=== PATIENT | female | born 1950 | race Caucasian/White ===

== ENCOUNTER 2021-08-23 07:36 | Emergency (ER) | payer OTHER ==
[~2021-08-23] VITALS: Ht 157.5 cm; Wt 61.2 kg
[2021-08-23] MEDS ORDERED: KETOROLAC TROMETHAMINE 30 MG/ML VIAL IV STA (07:58)
[2021-08-23] MEDS ORDERED: METOCLOPRAMIDE HCL 10 MG/2ML VIAL IV ONE (08:00)
[2021-08-23] MEDS ORDERED: DIPHENHYDRAMINE HCL INJ 50 MG/ML VIAL IV ONE (08:00)
[2021-08-23] MEDS ORDERED: SODIUM CHLORIDE 0.9% 500ML 500 ML IV ONE (08:00)
[2021-08-23] MEDS ORDERED: CEFTRIAXONE 1 GM in SODIUM CHLORIDE 0.9% 50ML 50 ML IV ONE (08:15)
[2021-08-23 09:20] VITALS: BP 158/75
== END 2021-08-23 09:24 | disposition home or self-care (01) ==
LOC: ER 08:00
DX: J01.30 Acute sphenoidal sinusitis, unspecified (principal); R51.9 Headache, unspecified; I10 Essential (primary) hypertension
CPT/HCPCS: 99283; J0696; J1200; J1885; J2765; J7040